=== PATIENT | female | born 1945 | race Caucasian/White ===

== ENCOUNTER 2016-11-11 09:56 | Emergency (ER) | payer MEDICARE, BC ==
[2016-11-11 10:08] LABS: URINE APPEARANCE CLEAR; URINE BILIRUBIN NEGATIVE (NEGATIVE); URINE BLOOD NEGATIVE (NEGATIVE); URINE COLOR YELLOW; URINE GLUCOSE (UA) NEGATIVE (NEGATIVE); URINE KETONE NEGATIVE (NEGATIVE); URINE LEUKOCYTE ESTERASE MODERATE (NEGATIVE); URINE NITRITE NEGATIVE (NEGATIVE); URINE PROTEIN NEGATIVE (NEGATIVE); URINE UROBILINOGEN 0.2 E.U./dL (0.20 - 1.00)
[2016-11-11 10:16] LABS: URINE RBC 0 - 2 (NONE SEEN)
[2016-11-11 10:17] LABS: URINE BACTERIA 3+; URINE WBC >50 (0-2/hpf)
[2016-11-11] MEDS ORDERED: PHENAZOPYRIDINE HCL 95 MG TABLET PO ONE (10:23)
[2016-11-11] MEDS ORDERED: TMP/SMZ 160MG/800MG TAB PO ONE (10:23)
--- NOTE | 2016-11-11 10:31 | Emergency Department Record ---
History of Present Illness - General Chief complaint: Female Urogenital Problem Stated complaint: THINKS SHE HAS A UTI Time Seen by Provider: 11/11/16 10:26 Source: Patient, RN notes reviewed Mode of Arrival: Ambulatory - History of Present Illness Initial comments: patient thinks she has a UTI MD Complaint: Dysuria Onset/Timin -: Hour(s) Improves with: None Worsens with: None Associated Symptoms: Dysuria - Related Data Home Medications Medication Instructions Recorded Confirmed Last Taken Aspirin [Aspirin EC] 81 mg PO DAILY 05/01/15 11/11/16 11/10/16 Calcium Carbonate/Vitamin D3 1 each PO BID 05/01/15 11/11/16 11/11/16 [Calcium 600 + D Tablet] Cholecalciferol (Vitamin D3) 2,000 unit PO DAILY 05/01/15 11/11/16 11/11/16 [Vitamin D3] Ezetimibe [Zetia] 10 mg PO QHS 05/01/15 11/11/16 11/10/16 Flaxseed Oil [Flax Seed Oil] 1,300 mg PO BID 05/01/15 11/11/16 11/10/16 Lactobacillus Acidophilus 1 each PO DAILY 05/01/15 11/11/16 11/11/16 [Acidophilus] Lisinopril [Lisinopril] 10 mg PO QAM 05/01/15 11/11/16 11/11/16 Lysine [l-Lysine] 500 mg PO DAILY 05/01/15 11/11/16 11/11/16 Bridgman-3 Fatty Acids/Fish Oil [Fish 1 each PO BID 05/01/15 11/11/16 11/11/16 Oil 1,000 mg Softgel] Rosuvastatin Calcium [Crestor] 5 mg PO QHS 05/01/15 11/11/16 11/10/16 Trazodone HCl [Desyrel] 50 mg PO QHS 05/01/15 11/11/16 11/10/16 Ubidecarenone [Co Q-10] 100 mg PO QHS 05/01/15 11/11/16 11/10/16 Previous Rx's Medication Instructions Recorded Meclizine HCl [Antivert] 25 mg PO Q8H #30 tablet 06/17/16 Phenazopyridine HCl [Pyridium] 200 mg PO TID #6 tab 11/11/16 Sulfamethoxazole/Trimethoprim 1 each PO BID #20 tablet 11/11/16 [Bactrim Ds Tablet] Allergies Allergy/AdvReac Type Severity Reaction Status Date / Time codeine Allergy RASH Verified 06/17/16 13:51 hydrocodone Allergy RASH Verified 06/17/16 13:51 tramadol HCl [From Ultram] Allergy RASH Verified 06/17/16 13:51 Travel Screening - Travel/Exposure Within Last 30 Days Have you traveled within the last 30 days?: No - Travel/Exposure Within Last Year Have you traveled outside the [place] in the last year?: No - Additonal Travel Details Have you been exposed to anyone with a communicable illness?: No - Travel Symptoms Symptom Screening: None Review of Systems Reviewed: No additional complaints except as noted below Constitutional: Reports: As per HPI. Denies: Chills, Fever, Malaise, Night sweats, Weakness, Weight change Eyes: Reports: As per HPI. Denies: Eye discharge, Eye pain, Photophobia, Vision change ENT: Reports: As per HPI. Denies: Congestion, Dental pain, Ear pain, Epistaxis , Hearing loss, Throat pain Respiratory: Reports: As per HPI. Denies: Cough, Dyspnea, Hemoptysis, Stridor, Wheezes Cardiovascular: Reports: As per HPI. Denies: Arrhythmia, Chest pain, Dyspnea on exertion, Edema, Murmurs, Orthopnea, Palpitations, Paroxysmal nocturnal dyspnea, Rheumatic Fever, Syncope Endocrine: Reports: As per HPI. Denies: Fatigue, Heat or cold intolerance, Polydipsia, Polyuria Gastrointestinal: Reports: As per HPI. Denies: Abdominal pain, Constipation, Diarrhea, Hematemesis, Hematochezia, Melena, Nausea, Vomiting Genitourinary: Reports: As per HPI, Dysuria. Denies: Abnormal menses, Discharge , Dyspareunia, Frequency, Hematuria, Incontinence, Retention, Urgency Musculoskeletal: Reports: As per HPI. Denies: Arthralgia, Back pain, Gout, Joint swelling, Myalgia, Neck pain Skin: Reports: As per HPI. Denies: Bruising, Change in color, Change in hair/ nails, Lesions, Pruritus, Rash Neurological: Reports: As per HPI. Denies: Abnormal gait, Confusion, Headache, Numbness, Paresthesias, Seizure, Tingling, Tremors, Vertigo, Weakness Psychiatric: Reports: As per HPI. Denies: Anxiety, Auditory hallucinations, Depression, Homicidal thoughts, Suicidal thoughts, Visual hallucinations Hematological/Lymphatic: Reports: As per HPI. Denies: Anemia, Blood Clots, Easy bleeding, Easy bruising, Swollen glands Past Medical History - SOCIAL HISTORY Smoking Status: Never smoker Alcohol Use: Rare Drug Use: None - RESPIRATORY Hx Respiratory Disorders: Yes Hx Sleep Apnea: Yes - CARDIOVASCULAR Hx Cardio Disorders: No - NEURO Hx Neuro Disorders: No - GI Hx GI Disorders: No - Hx Genitourinary Disorders: No - ENDOCRINE Hx Endocrine Disorders: No - MUSCULOSKELETAL Hx Musculoskeletal Disorders: Yes Hx Arthritis: Yes - PSYCH Hx Psych Problems: No - HEMATOLOGY/ONCOLOGY Hx Hematology/Oncology Disorders: No Family Medical History Any Significant Family History?: No Hx Cancer: Brother/Sister Hx Heart Disease: Father, Mother Physical Exam - General General Appearance: Alert, Oriented x3, Cooperative, No acute distress - Head Head exam: Normal inspection - Eye Eye exam: Normal appearance, PERRL Pupils: Normal accommodation - ENT ENT exam: Normal exam, Mucous membranes moist, Normal external ear exam, Normal orophraynx, TM's normal bilaterally Ear exam: Normal external inspection. negative: External canal tenderness Nasal Exam: Normal inspection. negative: Discharge, Sinus tenderness Mouth exam: Normal external inspection, Tongue normal Teeth exam: Normal inspection. negative: Dental caries Throat exam: Normal inspection. negative: Tonsillar erythema, Tonsillar exudate - Neck Neck exam: Normal inspection, Full ROM. negative: Tenderness - Respiratory Respiratory exam: Normal lung sounds bilaterally. negative: Respiratory distress - Cardiovascular Cardiovascular Exam: Regular rate, Normal rhythm, Normal heart sounds - GI/Abdominal GI/Abdominal exam: Soft, Normal bowel sounds. negative: Tenderness - Rectal Rectal exam: Deferred - exam: Deferred - Extremities Extremities exam: Normal inspection, Full ROM, Normal capillary refill. negative: Tenderness - Back Back exam: Reports: Normal inspection, Full ROM. Denies: Muscle spasm, Rash noted, Tenderness - Neurological Neurological exam: Alert, Normal gait, Oriented X3, Reflexes normal - Psychiatric Psychiatric exam: Normal affect, Normal mood - Skin Skin exam: Dry, Intact, Normal color, Warm Course Vital Signs 11/11/16 10:07 Temperature 97.6 F Pulse Rate [ 66 Pulse Ox Probe] Respiratory 12 Rate Blood Pressure 107/65 [Left Arm] Pulse Ox 98 Medical Decision Making - Data Complexity MDM Data: Labs Ordered and/or Reviewed - Lab Data Lab Results 11/11/16 Range/Units 10:03 Urine Color Yellow Urine Appearance Clear Urine pH 7.0 (5.0-8.0) Ur Specific [employer] <= 1.005 (1.002-1.030) Urine Protein Negative (NEGATIVE) Urine Glucose (UA) Negative (NEGATIVE) Urine Ketones Negative (NEGATIVE) Urine Blood Negative (NEGATIVE) Urine Nitrite Negative (NEGATIVE) Urine Bilirubin Negative (NEGATIVE) Urine Urobilinogen 0.2 (0.20 - 1.00) E.U./dL Ur Leukocyte Esterase Moderate H (NEGATIVE) Urine RBC 0 - 2 (NONE SEEN) Urine WBC >50 (0-2/hpf) Ur Epithelial Cells 3 - 6 (FEW) Urine Bacteria 3+ Disposition Clinical Impression: UTI (urinary tract infection) Qualifiers: Urinary tract infection type: acute cystitis Hematuria presence: without hematuria Qualified Code(s): N30.00 - Acute cystitis without hematuria Disposition: Home, Self-Care Condition: (1) Good Instructions: Urinary Tract Infection in Women (ED) Additional Instructions: follow up with family Dr. Rushing and drink lots of fluid Prescriptions: Sulfamethoxazole/Trimethoprim [Bactrim Ds Tablet] 1 each PO BID #20 tablet Phenazopyridine HCl [Pyridium] 200 mg PO TID #6 tab Forms: Patient Portal Access Time of Disposition: 10:39
== END 2016-11-11 10:53 | disposition home or self-care (01) ==
LOC: ER 09:56
DX: N30.00 Acute cystitis without hematuria (principal)
CPT/HCPCS: 81001; J3490; 99282

== ENCOUNTER 2017-07-26 20:22 | Emergency (ER) | payer MEDICARE, BC ==
[2017-07-26] MEDS ORDERED: DIPHENHYDRAMINE HCL 25 MG CAPSULE PO ONE (20:44)
[2017-07-26] MEDS ORDERED: PREDNISONE 20 MG TAB PO ONE (20:44)
--- NOTE | 2017-07-26 20:50 | Emergency Department Record ---
History of Present Illness - General Chief complaint: Rash Stated complaint: RASH HEAD TO TOE Time Seen by Provider: 07/26/17 20:25 Source: Patient Mode of Arrival: Ambulatory Limitations: No limitations - History of Present Illness Initial comments: 72 yo female presents to ED for evaluation of an itchy rash that began approximately 3.5 hours ago. Patient reports the rash has spread diffusely all over her body, denies throat swelling or difficulty in breathing symptoms. Patient denies any new medications, detergents, or foods. Patient has not taken anything for her rash prior to arrival. MD complaint: Rash Onset/Timin -: Hour(s) Location: Generalized Severity: Moderate Quality: Other (itching) Consistency: Constant Improves with: None Worsens with: None Associated symptoms: Itching Treatments Prior to Arrival: None - Related Data Home Medications Medication Instructions Recorded Confirmed Last Taken Clindamycin HCl 300 mg PO Q8H 07/26/17 07/26/17 Unknown Previous Rx's Medication Instructions Recorded Meclizine HCl [Antivert] 25 mg PO Q8H #30 tablet 06/17/16 Diphenhydramine HCl [Benadryl] 25 mg PO Q6H #20 cap 07/26/17 Famotidine [Pepcid] 40 mg PO DAILY #30 tablet 07/26/17 Prednisone [Prednisone 20Mg] 20 mg PO BID #8 tab 07/26/17 Allergies Allergy/AdvReac Type Severity Reaction Status Date / Time clindamycin Allergy RASH Verified 07/26/17 21:07 codeine Allergy RASH Verified 06/17/16 13:51 hydrocodone Allergy RASH Verified 06/17/16 13:51 tramadol HCl [From [facility]] Allergy RASH Verified 06/17/16 13:51 Travel Screening - Travel/Exposure Within Last 30 Days Have you traveled within the last 30 days?: No - Travel Symptoms Symptom Screening: None Review of Systems Constitutional: Denies: Chills, Fever, Malaise, Night sweats Eyes: Denies: Eye discharge, Eye pain ENT: Denies: Congestion, Ear pain, Epistaxis Respiratory: Denies: Cough, Dyspnea Cardiovascular: Denies: Chest pain, Dyspnea on exertion Endocrine: Denies: Fatigue, Heat or cold intolerance Gastrointestinal: Denies: Abdominal pain, Nausea, Vomiting Genitourinary: Denies: Incontinence, Retention Musculoskeletal: Denies: Arthralgia, Back pain Skin: Reports: Rash. Denies: Bruising, Change in color Neurological: Denies: Abnormal gait, Confusion, Headache, Seizure Psychiatric: Denies: Anxiety Hematological/Lymphatic: Denies: Anemia, Blood Clots Past Medical History - SOCIAL HISTORY Smoking Status: Never smoker - RESPIRATORY Hx Respiratory Disorders: Yes Hx Sleep Apnea: Yes Hx of CPAP: Yes - CARDIOVASCULAR Hx Cardio Disorders: Yes Comment:: high cholesterol - NEURO Hx Neuro Disorders: No - GI Hx GI Disorders: No - Hx Genitourinary Disorders: No - ENDOCRINE Hx Endocrine Disorders: No - MUSCULOSKELETAL Hx Musculoskeletal Disorders: Yes Hx Arthritis: Yes - PSYCH Hx Psych Problems: Yes Hx Depression: Yes - HEMATOLOGY/ONCOLOGY Hx Hematology/Oncology Disorders: No Family Medical History Any Significant Family History?: Yes Hx Cancer: Brother/Sister Hx Heart Disease: Father, Mother Physical Exam - General General Appearance: Alert, Oriented x3, Cooperative, Mild distress Limitations: No limitations - Head Head exam: Atraumatic, Normocephalic, Normal inspection Head exam detail: negative: Abrasion, Contusion, Clark's sign, General tenderness, Hematoma, Laceration - Eye Eye exam: Normal appearance. negative: Conjunctival injection, Periorbital swelling, Periorbital tenderness, Scleral icterus - ENT Ear exam: negative: Auricular hematoma, Auricular trauma Nasal Exam: negative: Active bleeding, Discharge, Dried blood, Foreign body Mouth exam: negative: Drooling, Laceration, Muffled voice, Tongue elevation - Neck Neck exam: Normal inspection. negative: Meningismus, Tenderness - Respiratory Respiratory exam: Normal lung sounds bilaterally. negative: Rales, Respiratory distress, Rhonchi, Stridor - Cardiovascular Cardiovascular Exam: Regular rate, Normal rhythm, Normal heart sounds - GI/Abdominal GI/Abdominal exam: Soft. negative: Rebound, Rigid, Tenderness - Rectal Rectal exam: Deferred - exam: Deferred - Extremities Extremities exam: Normal inspection. negative: Calf tenderness, Pedal edema, Tenderness - Back Back exam: Reports: Rash noted. Denies: CVA tenderness (R), CVA tenderness (L) - Neurological Neurological exam: Alert, Normal gait, Oriented X3 - Psychiatric Psychiatric exam: Normal affect, Normal mood - Skin Skin exam: Urticaria. negative: Abrasion Type of lesion: negative: abrasion Distribution of rash: Generalized Description of rash: Urticarial Course Vital Signs 07/26/17 20:30 Temperature 98 F Pulse Rate [ 73 Pulse Ox Probe] Respiratory 20 Rate Blood Pressure 124/84 [Left Arm] Pulse Ox 96 - Reevaluation(s) Reevaluation #1: 07/26/17 20:48 Patient is well appearing without difficulty in breathing, difficulty swallowing , or respiratory symptoms. Will treat the patient symptomatically for her allergic reaction symptoms with instructions to follow-up with her PCP in 1-3 days as directed. Disposition Disposition: Discharge Clinical Impression: Hives Disposition: Home, Self-Care Condition: (2) Stable Instructions: Urticaria (ED) Additional Instructions: Return to ED if your symptoms worsen or if you have any concerns. Prednisone, Pepcid, and Benadryl as directed. Follow-up with your family doctor in 1-3 days as directed. Prescriptions: Diphenhydramine HCl [Benadryl] 25 mg PO Q6H #20 cap Famotidine [Pepcid] 40 mg PO DAILY #30 tablet Prednisone [Prednisone 20Mg] 20 mg PO BID #8 tab Forms: Patient Portal Access Time of Disposition: 20:51 Quality - Quality Measures Quality Measures: N/A - Blood Pressure Screening Does Patient Have Any of the Following: No Blood Pressure Classification: Pre-Hypertensive BP Reading Systolic Measurement: 124 Diastolic Measurement: 84 Screening for High Blood Pressure: < Pre-Hypertensive BP, F/U Documented > [ G8950] Pre-Hypertensive Follow-up Interventions: Referral to alternative/primary care provider.
[2017-07-26] MEDS ORDERED: FAMOTIDINE 20MG TABLET PO ONE (20:54)
[2017-07-27] MEDS ORDERED: FAMOTIDINE 20MG TABLET PO SCH (10:00)
== END 2017-07-26 21:07 | disposition home or self-care (01) ==
LOC: ER 20:22
DX: L50.8 Other urticaria (principal)
CPT/HCPCS: 99282; J7512

== ENCOUNTER 2018-07-27 18:31 | Observation (INO) | payer MEDICARE, BC ==
--- NOTE | 2018-07-27 18:58 | Emergency Department Record ---
History of Present Illness - General Chief complaint: GI Bleed Stated complaint: BLOOD WHEN WIPING AFTER BATHROOM Time Seen by Provider: 07/27/18 18:48 Source: Patient Mode of Arrival: Ambulatory Limitations: No limitations - History of Present Illness Initial comments: The patient is here due to a 4 hour hx of the acute onset of nausea, then abdominal cramping and loose stools. She has noticed blood on the TP while wiping. There possibly has been some blood in the bowl but she is not sure. There has been no abdominal pain, fever, chills, vomiting, or any recent Abx use. The patient did have a bout of Cdiff last year. MD complaint: Blood on toilet paper Onset/Timin -: Hour(s) Quality: Painless Consistency: Constant Improves with: None Associated Symptoms: Diarrhea, Nausea Treatments Prior to Arrival: None - Related Data Home Medications Medication Instructions Recorded Confirmed Last Taken Oxybutynin Chloride [Ditropan] 5 mg PO BID 07/27/18 07/27/18 1 Day Ago ~07/26/18 Previous Rx's Medication Instructions Recorded Meclizine HCl [Antivert] 25 mg PO Q8H #30 tablet 06/17/16 Diphenhydramine HCl [Benadryl] 25 mg PO Q6H #20 cap 07/26/17 Famotidine [Pepcid] 40 mg PO DAILY #30 tablet 07/26/17 Allergies Allergy/AdvReac Type Severity Reaction Status Date / Time clindamycin Allergy RASH Verified 07/27/18 18:42 codeine Allergy RASH Verified 07/27/18 18:42 hydrocodone Allergy RASH Verified 07/27/18 18:42 tramadol HCl [From Ultram] Allergy RASH Verified 07/27/18 18:42 Travel Screening - Travel/Exposure Within Last 30 Days Have you traveled within the last 30 days?: No - Travel/Exposure Within Last Year Have you traveled outside the [place] in the last year?: No - Additonal Travel Details Have you been exposed to anyone with a communicable illness?: No - Travel Symptoms Symptom Screening: None Review of Systems Constitutional: Denies: Chills, Fever Eyes: Denies: Eye discharge ENT: Denies: Congestion Respiratory: Denies: Cough, Dyspnea Cardiovascular: Denies: Arrhythmia, Chest pain Endocrine: Denies: Fatigue Gastrointestinal: Reports: Diarrhea, Nausea. Denies: Abdominal pain, Vomiting Genitourinary: Denies: Dysuria Musculoskeletal: Denies: Arthralgia Skin: Denies: Bruising Past Medical History - SOCIAL HISTORY Smoking Status: Never smoker Alcohol Use: None Drug Use: None - RESPIRATORY Hx Respiratory Disorders: Yes Hx Sleep Apnea: Yes Hx of CPAP: Yes - CARDIOVASCULAR Hx Cardio Disorders: Yes Comment:: high cholesterol - NEURO Hx Neuro Disorders: No - GI Hx GI Disorders: No - Hx Genitourinary Disorders: No - ENDOCRINE Hx Endocrine Disorders: No - MUSCULOSKELETAL Hx Musculoskeletal Disorders: Yes Hx Arthritis: Yes - PSYCH Hx Psych Problems: Yes Hx Depression: Yes - HEMATOLOGY/ONCOLOGY Hx Hematology/Oncology Disorders: No Family Medical History Any Significant Family History?: Yes Hx Cancer: Brother/Sister Hx Heart Disease: Father, Mother Physical Exam - General General Appearance: Alert, Oriented x3, Cooperative, No acute distress - Head Head exam: Atraumatic, Normocephalic, Normal inspection - Eye Eye exam: Normal appearance, PERRL, EOMI - ENT Throat exam: Normal inspection. negative: Tonsillar erythema, Tonsillar exudate - Neck Neck exam: Normal inspection, Full ROM. negative: Tenderness - Respiratory Respiratory exam: Normal lung sounds bilaterally. negative: Respiratory distress - Cardiovascular Cardiovascular Exam: Regular rate, Normal rhythm, Normal heart sounds - GI/Abdominal GI/Abdominal exam: Soft, Normal bowel sounds. negative: Guarding, Pulsatile mass, Rebound, Rigid, Tenderness - Extremities Extremities exam: Normal inspection, Full ROM, Normal capillary refill. negative: Tenderness - Neurological Neurological exam: Alert. negative: Motor sensory deficit Course Vital Signs 07/27/18 18:50 Temperature 99.0 F Pulse Rate [ 77 Pulse Ox Probe] Respiratory 18 Rate Blood Pressure 144/75 [Left Arm] Pulse Ox 96 - Reevaluation(s) Reevaluation #1: The patient is doing very well at this time. She is still having mild cramping and bleeding with the loose stools. I did discuss the pos. Cdiff with the patient and did recommend a short stay admission due to the amount of bleeding. The patient does agree with the plan. Her HR is running slightly bradycardic but she is asymptomatic so we also will monitor overnight. I did discuss the case with Dr. Rushing and he does agree with the plan to Admit. 07/27/18 20:59 Medical Decision Making - Data Complexity MDM Data: Labs Ordered and/or Reviewed, X-Ray Ordered and/or Reviewed, EKG Ordered and/or Reviewed - Lab Data Result diagrams: 07/27/18 19:18 07/27/18 19:18 - EKG Data -: EKG Interpreted by Me EKG: No Acute Changes (Sinus elpidio.) - Radiology Data Radiology results: Report reviewed (Abd CT: Diverticulosis with possible mild Diverticulitis distal colon. Also gallstones. O/W neg.) Disposition Disposition: Admit Clinical Impression: Clostridium difficile colitis Disposition: Still a Patient at [facility] Decision to Admit: Admit from ER Decision to Admit Date: 07/27/18 Decision to Admit Time: 21:00 Accepting Physician: Kristan Time Discussed w/Accepting Physician: 21:01 Condition: (2) Stable Forms: Patient Portal Access Time of Disposition: 21:01 Quality - Quality Measures Quality Measures: N/A - Blood Pressure Screening View Details: Yes Does Patient Have Any of the Following: No Blood Pressure Classification: Pre-Hypertensive BP Reading Systolic Measurement: 111 Diastolic Measurement: 80 Screening for High Blood Pressure: < Pre-Hypertensive BP, F/U Documented > [ G8950] Pre-Hypertensive Follow-up Interventions: Referral to alternative/primary care provider.
[2018-07-27 19:22] LABS: STOOL FOR POLYS NO WBC'S OBSERVED (NO WBC'S)
[2018-07-27 19:23] LABS: BASO % 0.2 % (0-6); EOS % 0.2 % (0-6); GRAN % 80.9 % (47-80); HEMATOCRIT 44.8 % (35.0-47.0); LYMPH % 10.8 % (16-45); MEAN CELL VOLUME 91.8 fl (81-97); MEAN CORPUSCULAR HEMOGLOBIN 30.7 pg (27-33); MEAN CORPUSCULAR HGB CONC 33.5 g/dl (32-36); MEAN PLATELET VOLUME 9.5 fl (7.4-10.4); MONO % 7.9 % (0-9); PLATELET COUNT 175 K/uL (130-400); RED BLOOD COUNT 4.88 M/uL (3.80-5.40); WHITE BLOOD COUNT W/O DIFF 12.5 K/uL (4.2-12.2)
[2018-07-27 19:33] LABS: BLOOD UREA NITROGEN 18 mg/dL (8-23); CREATININE 0.8 mg/dL (0.5-0.9); EST GLOMERULAR FILTRATION RATE > 60 mL/min
[2018-07-27 19:35] LABS: GLUCOSE,RANDOM 147 mg/dL (74-109)
[2018-07-27 19:36] LABS: PARTIAL THROMBOPLASTIN TIME 24.6 SECONDS (24.5-39.1); PROTHROMBIN TIME (PATIENT) 10.4 SECONDS (9.5-12.1)
[2018-07-27 19:38] LABS: ALB/GLOB RATIO 1.6 (1.1-1.8); ALBUMIN 4.3 g/dL (4.0-5.0); ALKALINE PHOSPHATASE 92 U/L (35-104); ALT/SGPT 19 U/L (<33); AST/SGOT 27 U/L (10.0-35.0)
[2018-07-27] MEDS ORDERED: 0.9 % SODIUM CHLORIDE 1,000 ML BAG IV ONE (19:46)
[2018-07-27] MEDS ORDERED: ONDANSETRON HCL IV 4 MG/2 ML VIAL IVP ONE (19:59)
[2018-07-27] MEDS ORDERED: VANCOMYCIN HCL 1 GM VIAL PO ONE (20:45)
[2018-07-27] MEDS ORDERED: DIPHENHYDRAMINE HCL 25 MG CAPSULE PO PRN (22:28)
[2018-07-27] MEDS ORDERED: 0.9 % SODIUM CHLORIDE 1000ML 1,000 ML IV PRN (22:28)
--- NOTE | 2018-07-27 23:48 | CT SCAN REPORT ---
EXAM: CT SCAN ABDOMEN/PELVIS WO CONTRAST HISTORY: GI BLEEDING. TECHNIQUE: Axial images are obtained from the dome of the diaphragm to the symphysis pubis without intravenous contrast. FINDINGS: The lung bases and pleural spaces are clear. The liver is unremarkable in size and shape without focal mass or biliary dilatation. There is a heavily calcified gallstone in the gallbladder without evidence of cholecystitis. The spleen is normal. The pancreas is free of focal masses or pancreatic duct distention. The adrenal glands are normal. The kidneys are free of hydronephrosis or soft tissue mass. There is no evidence of mesenteric or retroperitoneal adenopathy. The stomach is unremarkable. The small bowel is not distended. There are moderate sigmoid diverticula present. There is mild pericolonic inflammation in the distal descending colon suggesting a potential element of diverticulitis. There is no free air. There is no ascites. No pelvic adenopathy or soft tissue mass. There are degenerative changes of the lumbar spine with no evidence of lytic or blastic lesion. There is a small umbilical hernia containing only fat. IMPRESSION: 1. LEFT-SIDED DIVERTICULOSIS WITH POSSIBLE DIVERTICULITIS NEAR THE JUNCTION OF DESCENDING AND SIGMOID COLON. NO EVIDENCE OF PERFORATION OR ASCITES. NO EVIDENCE OF OBSTRUCTION. 2. GALLSTONES WITHOUT CHOLECYSTITIS. JOB NUMBER: [id number] [facility]
[2018-07-28] MEDS: TRAZODONE 50 MG TABLET PO SCH ×2 (00:07→21:33)
[2018-07-28] MEDS: OXYBUTYNIN CHLORIDE 5MG TABLET PO SCH ×3 (00:07→21:32)
[2018-07-28] MEDS: ROSUVASTATIN CALCIUM 5 MG PO SCH ×2 (00:07→21:33)
[2018-07-28] MEDS: UBIDECARENONE 100 MG PO SCH ×2 (00:22→21:37)
[2018-07-28] MEDS: VANCOMYCIN HCL 1 GM VIAL PO SCH ×4 (01:44→18:05)
[2018-07-28 06:10] LABS: BASO % 0.1 % (0-6); EOS % 0.1 % (0-6); GRAN % 76.1 % (47-80); HEMATOCRIT 41.9 % (35.0-47.0); HEMOGLOBIN 14.1 gm/dl (11.6-16.0); MEAN CELL VOLUME 92.1 fl (81-97); MEAN CORPUSCULAR HGB CONC 33.7 g/dl (32-36); MEAN PLATELET VOLUME 9.6 fl (7.4-10.4); MONO % 10.7 % (0-9); PLATELET COUNT 163 K/uL (130-400); RED BLOOD COUNT 4.55 M/uL (3.80-5.40); RED CELL DISTRIBUTION WIDTH 13.1 % (11.5-14.5); WHITE BLOOD COUNT W/O DIFF 15.5 K/uL (4.2-12.2)
[2018-07-28 06:40] LABS: BLOOD UREA NITROGEN 13 mg/dL (8-23); CREATININE 0.6 mg/dL (0.5-0.9); EST GLOMERULAR FILTRATION RATE > 60 mL/min; GLUCOSE,RANDOM 133 mg/dL (74-109)
[2018-07-28] MEDS: FAMOTIDINE 20MG TABLET PO SCH (09:17)
[2018-07-28] MEDS ORDERED: ACETAMINOPHEN 500 MG TABLET PO PRN (21:27)
[2018-07-29] MEDS: VANCOMYCIN HCL 1 GM VIAL PO SCH ×2 (00:52→05:47)
--- NOTE | 2018-07-29 08:40 | History and Physical Report ---
DATE: 07/27/18 This is an observation patient. CHIEF COMPLAINT: Bloody stools. HISTORY OF PRESENT ILLNESS: This 73-year-old female presented to the emergency department, stated 4 hours of nausea, abdominal cramping, and loose stools. She noticed blood in the stool when wiping. She came to the emergency department, evaluated by Dr. Ellsworth, admitted to the hospital for C difficile gastroenteritis and GI bleed and abdominal pain. Her last use of antibiotics was 3 g before a dental appointment. Reviewing her case on why she is using the antibiotics, we are going to stop the antibiotics before dental appointments at this time. She says she is using them for a prosthesis replacement about 6-10 years ago. PAST MEDICAL HISTORY: Sleep apnea and uses CPAP, hypercholesterolemia, arthritis, depression. PAST SURGICAL HISTORY: Appendectomy, tonsillectomy, complete hysterectomy, bladder suspension, bunion right foot surgery, carpal tunnel surgery on the right wrist. MEDICATIONS: 1. Ditropan 5 mg b.i.d. 2. CoQ10 100 mg at h.s. 3. Trazodone 50 mg at h.s. 4. Crestor 5 mg q.h.s. 5. [place]enberg 3 fatty acids 1 b.i.d. 6. Antivert 25 mg q.8 h. p.r.n., not currently taking that. 7. L-lysine 500 mg daily. 8. Acidophilus 1 daily. 9. Flaxseed oil 1300 mg b.i.d. 10. Pepcid 40 mg daily. 11. Zetia 10 mg at h.s. 12. Benadryl 25 q.6 h. p.r.n. 13. Vitamin D3, 2000 units daily. 14. Calcium with vitamin D 1 b.i.d. 15. Aspirin 81 mg daily. ALLERGIES: CLINDAMYCIN, CODEINE, HYDROCODONE, TRAMADOL. FAMILY/PSYCHOSOCIAL HISTORY: Brother and sister had cancer. Father and mother had heart disease. Never smoked. No alcohol or drug use. REVIEW OF SYSTEMS: HEENT: No upper respiratory infection symptoms, cough, cold, or congestion. No visual problems or headaches. Cardiovascular: No chest pain, palpitations, or arrhythmia. She had one episode of cardiomyopathy but that has resolved many years ago, possibly viral. Respiratory: No cough, cold, or congestion. No smoking history. Gastrointestinal: See Chief Complaint. She has diarrhea, abdominal pain, nausea, and cramping and she had melenic stools and now red maroon colored stools. Genitourinary: No dysuria, hematuria, frequency, or burning on urination. Musculoskeletal: No joint or bone abnormalities. Neurological: No CVA, paralysis, or paresthesias. Endocrine: No diabetes or thyroid disease. Integument: She denies any rash, ulcers, change in moles, or yellow skin. PHYSICAL EXAMINATION: VITALS: Height 5 feet 4 inches, weight 215 pounds. Temperature 98.4, pulse 67, blood pressure 140/75, respiratory rate 18, pulse ox 98% on room air. HEENT: Pupils are equal, round, and reactive to light and accommodation. Extraocular muscles are intact. Throat is clear. Nose is clear. Tympanic membranes are trivedi. NECK: Supple. No jugular venous distention. No hepatojugular reflux. No carotid bruits. Thyroid is smooth. CARDIOVASCULAR: Regular rate and rhythm without murmurs, clicks, rubs, or gallops. RESPIRATORY: Clear to auscultation and percussion. ABDOMEN: Soft. Tender on palpation all 4 quadrants. No rebound or rigidity. No hepatosplenomegaly, no masses. Bowel sounds are active. No bruits. EXTREMITIES: No pitting edema. No cyanosis, no clubbing. Full range of motion. Peripheral pulses are good. BREASTS: Exam deferred. GYNECOLOGICAL: Exam deferred. RECTAL: Exam deferred. NEUROLOGIC: Cranial nerves II-XII intact. No gross defects. Sensation normal, strength normal. Deep tendon reflexes equal bilaterally with Babinski negative. MENTAL STATUS: Alert and oriented x3. IMPRESSION: 1. GI bleed. 2. Clostridium difficile gastroenteritis. PLAN: Serial hemoglobin. Vancomycin orally 125 q.6 h. IV fluids. MTDD
[2018-07-29] MEDS: FAMOTIDINE 20MG TABLET PO SCH (09:29)
[2018-07-29] MEDS: OXYBUTYNIN CHLORIDE 5MG TABLET PO SCH (09:30)
--- NOTE | 2018-07-29 11:39 | Discharge Note ---
VTE H&P Assessment - Risk for VTE Risk for VTE: Yes Risk Level: Moderate Risk Assessment Date: 07/28/18 Risk Assessment Time: 09:00 VTE Orders Placed or Will Be Placed: Yes Discharge Medications - Discharge Medications Prescriptions: Vancomycin HCl [Vancocin HCl] 125 mg PO Q6HR #28 capsule Vancomycin HCl 125 mg PO Q6HR #56 capsule Home Medications: Ambulatory Orders Calcium Carbonate/Vitamin D3 [Calcium 600 + D Tablet] 1 each PO BID 05/01/15 [ Last Taken 1 Day Ago ~07/26/18] Cholecalciferol (Vitamin D3) [Vitamin D3] 2,000 unit PO DAILY 05/01/15 [Last Taken 1 Day Ago ~07/26/18] Ezetimibe [Zetia] 10 mg PO QHS 05/01/15 [Last Taken 1 Day Ago ~07/26/18] Flaxseed Oil [Flax Seed Oil] 1,300 mg PO BID 05/01/15 [Last Taken 1 Day Ago ~] Lactobacillus Acidophilus [Acidophilus] 1 each PO DAILY 05/01/15 [Last Taken 1 Day Ago ~07/26/18] Lysine [l-Lysine] 500 mg PO DAILY 05/01/15 [Last Taken 1 Day Ago ~07/26/18] [place]-3 Fatty Acids/Fish Oil [Fish Oil 1,000 mg Softgel] 1 each PO BID 05/01/15 [Last Taken 1 Day Ago ~07/26/18] Rosuvastatin Calcium [Crestor] 5 mg PO QHS 05/01/15 [Last Taken 1 Day Ago ~07/26] Trazodone HCl [Desyrel] 50 mg PO QHS 05/01/15 [Last Taken 1 Day Ago ~07/26/18] Ubidecarenone [Co Q-10] 100 mg PO QHS 05/01/15 [Last Taken 1 Day Ago ~07/26/18] Diphenhydramine HCl [Benadryl] 25 mg PO Q6H #20 cap 07/26/17 [Last Taken 1 Day Ago ~07/26/18] Famotidine [Pepcid] 40 mg PO DAILY #30 tablet 07/26/17 [Last Taken 1 Day Ago ~] Oxybutynin Chloride [Ditropan] 5 mg PO BID 07/27/18 [Last Taken 1 Day Ago ~07/26] Vancomycin HCl 125 mg PO Q6HR #56 capsule 07/29/18 [Last Taken Unknown] Vancomycin HCl [Vancocin HCl] 125 mg PO Q6HR #28 capsule 07/29/18 [Last Taken Unknown] Discharge Note - Date Date of Discharge Note: 07/29/18 Disposition: Home, Self-Care Condition: (2) Stable Instructions: Ulcerative Colitis (DC), Clostridium Difficile Infection (DC) Additional Instructions: follow up with Dr. rosario on Aug 01 at 10:30 am. increase diet as tolerated Prescriptions: Vancomycin HCl [Vancocin HCl] 125 mg PO Q6HR #28 capsule Vancomycin HCl 125 mg PO Q6HR #56 capsule Referrals: Alvarado Rosario D.O. [Primary Care Provider] - Forms: Patient Portal Access Activity at Discharge: Increase Activity as Tolerated
--- NOTE | 2018-08-01 10:00 | Discharge Summary ---
DATE: 07/29/2018 This is an observation patient. DISCHARGE DIAGNOSES: 1. Clostridium difficile gastroenteritis. 2. Gastrointestinal bleed secondary to above. 3. History of sleep apnea using CPAP machine. 4. History of hypercholesterolemia. 5. History of arthritis. 6. History of depression. ATTENDING PHYSICIAN: Alvarado Rushing DO REASON FOR HOSPITALIZATION: Bloody stools. This 73-year-old female presented to the emergency department, stated 4 hours prior to coming to the emergency room she had nausea, abdominal cramping, and loose stools with blood in the stool when she wiped her rectum. She came to the emergency department, evaluated by Dr. Ellsworth, admitted to the hospital for C difficile gastroenteritis and GI bleeding with abdominal pain. Her last use of antibiotics was 3 g as a prophylaxis for her dental appointment approximately 4-6 weeks ago and then she had a course of antibiotics in November 2017. At this point, reviewing her history, we are going to stop using prophylactic antibiotics for the dental appointment because it is for a knee replacement and they revised the guidelines and it is not necessary after a number of years to continue dental prophylaxis for a prosthetic joint. She said her joint was replaced 6-10 years ago. SIGNIFICANT FINDINGS: Clostridium difficile is positive in the stool. Hemoglobin initially was 15.1, dropped down to 13.7. Initial white count was 12,500. Repeat showed a white count of 15,500. Her discharge electrolytes, potassium 3.9, BUN 13, creatinine 0.6, sodium 142. She had no WBCs seen in her stool. Her occult stool was positive. She had a CT scan of the abdomen done through the emergency department, revealed left-sided diverticulosis with possible diverticulitis near the junction of the descending and sigmoid colon. No evidence of perforation or ascites. No evidence of obstruction. Gallstones without cholecystitis. EKG showing no acute changes, normal sinus rhythm. She had 2 EKGs showing the same thing 12-24 hours apart. THERAPY PROVIDED: The patient was started on oral vancomycin 125 q.6 h., IV fluids, serial hemoglobin. The serial hemoglobin did not drop down significantly. HOSPITAL COURSE: She is feeling much better. The diarrhea slowed down. She is still having some blood with wiping in her rectum. CONDITION ON DISCHARGE: Much improved. DISCHARGE INSTRUCTIONS: Follow up with Dr. Rushing on 08/01/2018Wednesday at 10:30 a.m. Vancomycin 125 q.6 h. for 14 days. Continue her home medications of calcium with vitamin D 1 b.i.d., vitamin D3 2000 units daily, Zetia 10 mg at h.s., flaxseed oil 1300 mg b.i.d., lactobacillus one daily, lysine 1 daily, omega 3 1000 mg b.i.d., Crestor 5 mg at h.s., trazodone 50 mg at h.s., CoQ10 100 mg at h.s., Pepcid 40 mg daily, Ditropan 5 mg b.i.d., stopping the aspirin therapy. MTDD
== END 2018-07-29 12:27 | disposition home or self-care (01) ==
LOC: ER 18:31 → MEDSURG 21:40
PROVIDERS: ADMIT Emergency Medicine; ATTEND Emergency Medicine
DX: A04.72 Enterocolitis due to Clostridium difficile, not specified as recurrent (principal); R19.7 Diarrhea, unspecified; G47.30 Sleep apnea, unspecified; E78.00 Pure hypercholesterolemia, unspecified; M19.90 Unspecified osteoarthritis, unspecified site; Z87.891 Personal history of nicotine dependence
CPT/HCPCS: 85025 ×2; 85018; 85730; 85610; 80048; 80053; 89055; 87427; 82272; 87493; 74176; 93005 ×3; 93010 ×3; G0378 ×3; J2405; J3490 ×2; J3370 ×3; 96374; 99217; 99220; 99225; 99285; J7030

== ENCOUNTER 2019-04-27 05:59 | Day surgery (SDC) | payer MEDICARE, BC ==
[2019-04-27] MEDS ORDERED: KETAMINE HCL 100MG/1ML VIAL INJ ONE (06:00)
[2019-04-27] MEDS ORDERED: MIDAZOLAM HCL 2MG/2ML VIAL IV ONE (06:00)
[2019-04-27] MEDS: RINGERS SOLUTION,LACTATED 1,000 ML IV ONE ×2 (06:35→08:32)
[2019-04-27] MEDS: ACETAMINOPHEN 1,000 MG/100 ML BTL IVPB ONE (06:38)
[2019-04-27] MEDS: LIDOCAINE 2% MDV (20MG/ML) 20ML VIAL SQ ONE (08:10)
--- NOTE | 2019-04-28 11:11 | Operative Note ---
DATE OF SURGERY: 04/27/2019 SURGEON: Meño Arthur DO PREOPERATIVE DIAGNOSIS: Carpal tunnel syndrome of the left wrist. POSTOPERATIVE DIAGNOSIS: Carpal tunnel syndrome of the left wrist. OPERATION: Carpal tunnel decompression of the median nerve of the left wrist using 3.5 loop magnification. DESCRIPTION OF PROCEDURE: This 73-year-old female was taken to the operating room and placed in the supine position on the operating room table. Assisted local anesthesia was used, 2% Xylocaine plain was used as a local anesthetic. After satisfactory anesthetic, the left upper extremity was prepped with Hibiclens and draped in the usual sterile fashion. An incision was made from the flexor crease to the base of the webspace of the thumb. Dissection was carried down through the skin and subcutaneous tissue following the hypothenar crease. The subcutaneous tissue was divided to expose the flexor retinaculum, which was punctured and split to its proximal margin. Then, with the contents of the carpal tunnel under direct vision, the transverse carpal ligament was transected along its ulnar border. The radial flap was raised to expose the entire median nerve under the transverse carpal ligament. The recurrent motor branch of the median nerve was identified and found to be intact. The nerve itself appeared to be grossly normal. The wound was irrigated with lactated Ringer's solution, the tourniquet released, and hemostasis obtained with the electrocautery. The wound closed with interrupted 6-0 nylon suture. Sterile dressings with plaster splint immobilization were applied with the wrist in slight dorsiflexion and the thumb in an adducted position. URIEL
== END 2019-04-27 09:05 | disposition home or self-care (01) ==
LOC: SUR 05:59
PROVIDERS: ATTEND Orthopaedic Surgery
DX: G56.02 Carpal tunnel syndrome, left upper limb (principal); E78.00 Pure hypercholesterolemia, unspecified; N32.81 Overactive bladder; R60.9 Edema, unspecified; G47.33 Obstructive sleep apnea (adult) (pediatric)
CPT/HCPCS: J3490; J7120

== ENCOUNTER 2019-05-08 13:51 | Emergency (ER) | payer MEDICARE, BC ==
--- NOTE | 2019-05-08 14:56 | Emergency Department Record ---
History of Present Illness - General Chief complaint: Extremity Problem Stated complaint: RIGHT LEG INJURY Time Seen by Provider: 05/08/19 14:31 Source: Patient Mode of Arrival: Ambulatory Limitations: No limitations - History of Present Illness Initial comments: pt scraped her lef on a bin a few days ago and now it is turning red and is more tender Complaint: Extremity pain, Extremity swelling Onset/Timin -: Days(s) Location: Right, Lower Leg Radiation: None Severity scale (1-10): 3 Quality: Other Consistency: Constant Improves with: Nothing Worsens with: Nothing Associated Symptoms: Denies other symptoms - Related Data Previous Rx's Medication Instructions Recorded Sulfamethoxazole/Trimethoprim 1 each PO BID #20 tablet 05/08/19 [Bactrim Ds Tablet] Allergies Allergy/AdvReac Type Severity Reaction Status Date / Time clindamycin Allergy RASH Verified 07/27/18 18:42 codeine Allergy RASH Verified 07/27/18 18:42 hydrocodone Allergy RASH Verified 07/27/18 18:42 hydromorphone [From Dilaudid] Allergy RASH Verified 04/20/19 13:52 tramadol HCl [From Ultram] Allergy RASH Verified 07/27/18 18:42 Travel Screening - Travel/Exposure Within Last 30 Days Have you traveled within the last 30 days?: No Review of Systems Reviewed: No additional complaints except as noted below Constitutional: Reports: As per HPI. Denies: Chills, Fever, Malaise, Night sweats, Weakness, Weight change Eyes: Reports: As per HPI. Denies: Eye discharge, Eye pain, Photophobia, Vision change ENT: Reports: As per HPI. Denies: Congestion, Dental pain, Ear pain, Epistaxis, Hearing loss, Throat pain Respiratory: Reports: As per HPI. Denies: Cough, Dyspnea, Hemoptysis, Stridor, Wheezes Cardiovascular: Reports: As per HPI. Denies: Arrhythmia, Chest pain, Dyspnea on exertion, Edema, Murmurs, Orthopnea, Palpitations, Paroxysmal nocturnal dyspnea, Rheumatic Fever, Syncope Endocrine: Reports: As per HPI. Denies: Fatigue, Heat or cold intolerance, Polydipsia, Polyuria Gastrointestinal: Reports: As per HPI. Denies: Abdominal pain, Constipation, Diarrhea, Hematemesis, Hematochezia, Melena, Nausea, Vomiting Genitourinary: Reports: As per HPI. Denies: Abnormal menses, Discharge, Dyspareunia, Dysuria, Frequency, Hematuria, Incontinence, Retention, Urgency Musculoskeletal: Reports: As per HPI. Denies: Arthralgia, Back pain, Gout, Joint swelling, Myalgia, Neck pain Skin: Reports: As per HPI. Denies: Bruising, Change in color, Change in hair/nails, Lesions, Pruritus, Rash Neurological: Reports: As per HPI. Denies: Abnormal gait, Confusion, Headache, Numbness, Paresthesias, Seizure, Tingling, Tremors, Vertigo, Weakness Psychiatric: Reports: As per HPI. Denies: Anxiety, Auditory hallucinations, Depression, Homicidal thoughts, Suicidal thoughts, Visual hallucinations Hematological/Lymphatic: Reports: As per HPI. Denies: Anemia, Blood Clots, Easy bleeding, Easy bruising, Swollen glands Past Medical History - SOCIAL HISTORY Smoking Status: Former smoker - RESPIRATORY Hx Respiratory Disorders: Yes Hx Sleep Apnea: Yes Hx of CPAP: Yes - CARDIOVASCULAR Hx Cardio Disorders: No Comment:: high cholesterol - NEURO Hx Neuro Disorders: No - GI Hx GI Disorders: No Comment:: c-diff hx and presently - Hx Genitourinary Disorders: No - ENDOCRINE Hx Endocrine Disorders: No - MUSCULOSKELETAL Hx Musculoskeletal Disorders: Yes Hx Arthritis: Yes - PSYCH Hx Psych Problems: Yes Hx Depression: Yes - HEMATOLOGY/ONCOLOGY Hx Hematology/Oncology Disorders: No Family Medical History Any Significant Family History?: Yes Hx Alcohol Use: Father, Mother, Brother/Sister Hx Cancer: Father, Brother/Sister, Grandparents Hx Diabetes: Grandparents Hx Heart Disease: Father, Mother, Grandparents Hx Liver Disease: Father, Brother/Sister *Liver Comment: father and brothers w/cirrhosis Hx Resp Disorders: Mother Physical Exam - General General Appearance: Alert, Oriented x3, Cooperative, No acute distress - Head Head exam: Normal inspection - Eye Eye exam: Normal appearance, PERRL, EOMI Pupils: Normal accommodation - ENT ENT exam: Normal exam, Mucous membranes moist, Normal external ear exam, Normal orophraynx, TM's normal bilaterally Ear exam: Normal external inspection. negative: External canal tenderness Nasal Exam: Normal inspection. negative: Discharge, Sinus tenderness Mouth exam: Normal external inspection, Tongue normal Teeth exam: Normal inspection. negative: Dental caries Throat exam: Normal inspection. negative: Tonsillar erythema, Tonsillar exudate - Neck Neck exam: Normal inspection, Full ROM. negative: Tenderness - Respiratory Respiratory exam: Normal lung sounds bilaterally. negative: Respiratory distress - Cardiovascular Cardiovascular Exam: Regular rate, Normal rhythm, Normal heart sounds - GI/Abdominal GI/Abdominal exam: Soft, Normal bowel sounds. negative: Tenderness - Rectal Rectal exam: Deferred - exam: Deferred - Extremities Extremities exam: Full ROM, Normal capillary refill, Tenderness Image of Full Body: 1 - erythema w abrasions in the middle - Back Back exam: Reports: Normal inspection, Full ROM. Denies: Muscle spasm, Rash noted, Tenderness - Neurological Neurological exam: Alert, Normal gait, Oriented X3, Reflexes normal - Psychiatric Psychiatric exam: Normal affect, Normal mood - Skin Skin exam: Abrasion, Dry, Erythema, Intact, Normal color, Warm Distribution of rash: RLE Course Vital Signs 05/08/19 14:06 Temperature 98.6 F Pulse Rate 68 Respiratory 18 Rate Blood Pressure 123/60 Pulse Ox 96 Disposition Disposition: Discharge Clinical Impression: Cellulitis of leg, right Disposition: Home, Self-Care Condition: (1) Good Instructions: Cellulitis (ED) Additional Instructions: follow up with family doctor. return sooner if worse. moist heat and elevation Prescriptions: Sulfamethoxazole/Trimethoprim [Bactrim Ds Tablet] 1 each PO BID #20 tablet Quality - Quality Measures Quality Measures: N/A - Blood Pressure Screening Does Patient Have Any of the Following: No Blood Pressure Classification: Pre-Hypertensive BP Reading Systolic Measurement: 123 Diastolic Measurement: 60 Screening for High Blood Pressure: < Pre-Hypertensive BP, F/U Documented > [[id number]] Pre-Hypertensive Follow-up Interventions: Follow-up with rescreen every year.
== END 2019-05-08 15:10 | disposition home or self-care (01) ==
LOC: ER 13:51
DX: S80.811A Abrasion, right lower leg, initial encounter (principal); L03.115 Cellulitis of right lower limb; W22.8XXA Striking against or struck by other objects, initial encounter
CPT/HCPCS: 99283